=== PATIENT | male | born 1955 | race Caucasian/White ===

== ENCOUNTER 2018-05-26 10:14 | Emergency (ER) | payer MEDICAID, OTHER ==
[2018-05-26] MEDS: KETOROLAC 30 MG INJ IM (11:25)
[2018-05-26] MEDS: predniSONE 20 MG TAB PO (11:25)
== END 2018-05-26 15:13 | disposition home or self-care (01) ==
LOC: FTE 10:14
DX: M25.561 Pain in right knee (principal); M25.562 Pain in left knee; R05 Cough
CPT/HCPCS: 71046; 71250; 82962; 96372; 99285-25